=== PATIENT | female | born 1995 | race American Indian/Alaskan Native ===

== ENCOUNTER 2020-04-11 15:27 | Outpatient (CLI) | payer OTHER ==
[2020-04-11 16:00] VITALS: BP 118/76
[2020-04-11] MEDS ORDERED: LACTATED RINGERS 1,000 ML IV SCH (16:00)
[2020-04-11 16:11] LABS: Bilirubin,Urine NEG (Negative); Blood,Urine NEG (Negative); Color,Urine Yellow (Yellow); Mucus,Urine FEW /HPF; Protein,Urine <15 mg/dL mg/dL (Negative); Urobilinogen,Urine < 2.0 mg/dL (<2.0); WBC,Urine < 1.0 /HPF (0.0-6.0)
[2020-04-11] MEDS ORDERED: MAGNESIUM HYDROXIDE (MOM) ORAL LIQD UDC PO PRN (16:40)
[2020-04-11] MEDS ORDERED: PSEUDOEPHEDRINE 30 MG TAB PO PRN (16:40)
[2020-04-11] MEDS ORDERED: ACETAMINOPHEN 325 MG TAB PO PRN (16:40)
[2020-04-11] MEDS ORDERED: DOCUSATE SODIUM 100 MG CAP PO PRN (16:40)
[2020-04-11] MEDS ORDERED: ALUM-MAG HYDROXIDE-SIMETHICONE 200-200-20MG/5ML ORAL LIQD 30 ML PO PRN (16:40)
[2020-04-11] MEDS ORDERED: ONDANSETRON 4 MG/2 ML INJ IV PRN (16:40)
[2020-04-11] MEDS ORDERED: guaiFENesin DM 200/20 MG ORAL LIQD 10 ML PO PRN (16:40)
[2020-04-11] MEDS ORDERED: SIMETHICONE 80 MG CHEW TAB PO PRN (16:40)
[2020-04-11] MEDS ORDERED: WITCH HAZEL/ GLYCERIN PAD TP PRN (16:40)
[2020-04-11] MEDS ORDERED: SODIUM CHLORIDE NASAL SPRAY 44ML NS PRN (16:40)
[2020-04-11] MEDS ORDERED: SENNOSIDES/DOCUSATE SODIUM 8.6/50 MG TAB PO PRN (16:40)
[2020-04-11] MEDS ORDERED: diphenhydrAMINE 25 MG CAP PO PRN (16:40)
--- NOTE | 2020-04-11 17:13 | Discharge Summary ---
Providers - Providers Date of Admission: 04/11/2020 Date of discharge: 04/11/20 Attending physician: CLARA PEÑA JR, MD 04/11/20 16:40 Consult to Physician [CONS] Stat Comment: Consulting Provider: CARROLL PINEDA I Physician Instructions: Reason For Exam: EMILE, antonia PCD Primary care physician: CLARA PEÑA JR, MD Hospitalization Reason for admission: observation Hospital course: 24-year-old -0-1-0 at 23 weeks 2 days by reported sono presenting with pain cervical dilation to 1 cm with membranes visible. Patient desires labor complaints or PIH symptoms. Normal movement. Patient reports a history of pain cervical dilation at 19 weeks with rupture membranes and findings of spontaneous delivery with July 2018. Patient was a transfer from outside facility clinic today with the findings noted above. Patient was not on hormonal management or cerclage for the history of PCD. Discussed with EMILE who reports that they would do steroids until 23w4d. Wouldn't recommend cerclage past 22 weeks. Anatomy scan today showing size = dates. Discharged to follow up with EMILE urgently. Will discharge home with vaginal progestone 200mg QHS. Condition at discharge: Good Disposition: DC-01 TO HOME OR SELFCARE Plan - Discharge Medications Prescriptions: Progesterone, Micronized [Progesterone] 200 mg PO QPM #30 cap - Provider Discharge Summary Additional instructions: [] Smoking cessation referral if applicable(refer to patient education folder for contact #) [] Refer to [facility]'s [facility] Booklet Call your doctor immediately for: * Fever > 100.5 * Heavy vaginal bleeding ( >1 pad per hour) * Severe persistent headache * Shortness of breath * Reddened, hot, painful area to leg or breast * Drainage or odor from incision. * Keep incision clean and dry at all times and follow doctor's instructions regarding bathing/showering - Follow up plan Follow up: CLARA PEÑA JR, MD [Primary Care Provider] - 14 Days
--- NOTE | 2020-04-11 18:00 | Ultrasound Report ---
ULTRASOUND OBSTETRIC COMPLETE INDICATION / CLINICAL INFORMATION: History of dilated cervix on prior ultrasound. Evaluate anatomy/growth. Clinical Gestational Age (GA) in weeks.days: 23.0 TECHNIQUE: Transabdominal. COMPARISON: None available. FINDINGS: NUMBER: Single PRESENTATION: cephalic PLACENTA: posterior and free of the os. MATERNAL ADNEXA: No significant abnormality. AMNIOTIC FLUID VOLUME: normal AMNIOTIC FLUID INDEX (BAUDILIO) in cm (if measured): 16.7 ANATOMY: organs (including the bladder, stomach, kidneys, heart, umbilical cord, diaphragm, cord inserti on, spine and intracranial structures) are visualized and show no significant abnormality with the fo llowing exception(s): None. MEASUREMENTS: - Biparietal Diameter = 5.83 cm = 23.6 weeks.days - Head Circumference = 22.21 cm = 24.2 weeks.days - Abdominal Circumference = 19.20 cm = 23.6 weeks.days - Femur Length = 4.14 cm = 23.3 weeks.days - Estimated Weight (in grams, if calculated): 628 - Heart Rate (beats per minute): 152 ADDITIONAL FINDINGS: The cervix is distended by fluid and measures 3.1 cm in length. PERCENTILE ESTIMATED WEIGHT (if calculated): 80 AVERAGE ULTRASOUND AGE (AUA) in weeks.days = 23.6 IMPRESSION: 1. Single intrauterine with AUA of 23.6 weeks.days 2. Nonspecific cervical distention with a normal cervical length. Signer Name: Jonnathan Escobedo MD Signed: 04/11/2020 5:56 PM Workstation Name: [id number]
[2020-04-12] MEDS ORDERED: PRENATAL VIT27-FE FUMARATE-FOLIC ACID VIT TAB PO SCH (10:00)
== END 2020-04-11 18:18 | disposition home or self-care (01) ==
LOC: TRG 15:27 → APU 15:29 → TRG 18:18
PROVIDERS: ATTEND Obstetrics & Gynecology
DX: O34.32 Maternal care for cervical incompetence, second trimester (principal); Z3A.23 23 weeks gestation of pregnancy
CPT/HCPCS: 59025; 76805; 81001

== ENCOUNTER 2020-04-13 15:13 | Outpatient (CLI) | payer OTHER ==
[2020-04-13 15:54] VITALS: BP 114/71
== END 2020-04-13 16:42 | disposition home or self-care (01) ==
LOC: TRG 15:13 → APU 15:13 → TRG 16:42
PROVIDERS: ATTEND Obstetrics & Gynecology
DX: O26.892 Other specified pregnancy related conditions, second trimester (principal); M54.5 Low back pain; Z3A.23 23 weeks gestation of pregnancy
CPT/HCPCS: 59025

== ENCOUNTER 2020-04-16 17:13 | Outpatient (CLI) | payer OTHER ==
[2020-04-16 19:43] VITALS: BP 124/71
[2020-04-17] MEDS ORDERED: BETAMET ACET/BETAMET NA PH 6 MG/ML INJ 5 ML MDV IM ONE ×2 (01:33→02:00)
--- NOTE | 2020-04-18 09:20 | Ultrasound Report ---
ULTRASOUND OBSTETRIC INDICATION / CLINICAL INFORMATION: ASSESSMENT. Clinical Gestational Age (GA) in weeks, days: 24, 4 TECHNIQUE: Transabdominal. COMPARISON: Ultrasound dated 04/11/20 FINDINGS: There is a single intrauterine . Biparietal Diameter = 5.7 cm = 23, 4 weeks, days Head Circumference = 23 cm = 24, 4 weeks, days Abdominal Circumference = 20 cm = 24, 4 weeks, days Femur Length = 4.5 cm = 24, 6 weeks, days Average Ultrasound Age (AUA) = 24, 3 weeks, days Heart Rate: 157 beats per minute. Estimated Weight in grams (if calculated): 713 Estimated Weight Growth Percentile (if calculated): Not calculated Position: cephalic. Cervix: Mild cervical funneling. Length in cm (if measured): 3.6 Placenta: posterofundal and free of the os. Amniotic Fluid Volume: normal Amniotic Fluid Index (BAUDILIO) in cm (if calculated): Not calculated. Maternal Adnexa: No significant abnormality. IMPRESSION: 1. Single, living intrauterine with estimated sonographic age of 24, 3 weeks, days. 2. Mild cervical funneling with normal cervical length. Signer Name: David Arvizu MD Signed: 04/17/2020 3:10 AM Workstation Name: [id number]
== END 2020-04-17 19:09 | disposition home or self-care (01) ==
LOC: TRG 17:13 → APU 21:51 → TRG 04-17 19:09
PROVIDERS: ATTEND Obstetrics & Gynecology
DX: O47.02 False labor before 37 completed weeks of gestation, second trimester (principal); Z3A.24 24 weeks gestation of pregnancy
CPT/HCPCS: 76805

== ENCOUNTER 2020-04-18 00:57 | Outpatient (CLI) | payer OTHER ==
[~2020-04-18 00:57] MED LIST: BETAMET ACET/BETAMET NA PH 6 MG/ML INJ 5 ML MDV IM ONE
[2020-04-18 01:20] VITALS: BP 118/62
[2020-04-18] MEDS ORDERED: BETAMET ACET/BETAMET NA PH 6 MG/ML INJ 5 ML MDV IM ONE (01:20)
== END 2020-04-18 01:35 | disposition home or self-care (01) ==
LOC: TRG 00:57
PROVIDERS: ATTEND Obstetrics & Gynecology
DX: O47.02 False labor before 37 completed weeks of gestation, second trimester (principal); Z3A.24 24 weeks gestation of pregnancy; Z87.891 Personal history of nicotine dependence
CPT/HCPCS: 96372; J0702

== ENCOUNTER 2020-05-05 04:57 | Inpatient (IN) | payer OTHER ==
[2020-05-05] MEDS ORDERED: LACTATED RINGERS 1,000 ML IV ONE (05:54)
[2020-05-05] MEDS ORDERED: SODIUM CHLORIDE NASAL SPRAY 44ML NS PRN (06:22)
[2020-05-05] MEDS ORDERED: LACTATED RINGERS 500 ML IV ONE (06:22)
[2020-05-05] MEDS ORDERED: diphenhydrAMINE 25 MG CAP PO PRN (06:22)
[2020-05-05] MEDS ORDERED: SIMETHICONE 80 MG CHEW TAB PO PRN (06:22)
[2020-05-05] MEDS ORDERED: ONDANSETRON 4 MG/2 ML INJ IV PRN (06:22)
[2020-05-05] MEDS ORDERED: MAGNESIUM SULFATE 4 GM/100 ML BAG IV ONE (06:33)
[2020-05-05 06:52] LABS: Basophils % (Auto) 0.3 % (0.0-1.8); Eosinophils # (Auto) 0.1 K/mm3 (0.0-0.4); Eosinophils % (Auto) 1.1 % (0.0-4.3); Hemoglobin 9.4 gm/dl (10.1-14.3); Lymphocytes # (Auto) 1.2 K/mm3 (1.2-5.4); Lymphocytes % (Auto) 11.8 % (13.4-35.0); Mean Corpuscular HGB Conc 35 % (30-34); Mean Corpuscular Volume 81 fl (79-97); Monocytes # (Auto) 0.8 K/mm3 (0.0-0.8); Monocytes % (Auto) 8.6 % (0.0-7.3); Platelet Count 229 K/mm3 (140-440); Red Blood Count 3.32 M/mm3 (3.65-5.03); Red Cell Distribution Width 14.4 % (13.2-15.2)
[2020-05-05] MEDS ORDERED: BETAMET ACET/BETAMET NA PH 6 MG/ML INJ 5 ML MDV IM SCH (07:00)
[2020-05-05] MEDS ORDERED: MAGNESIUM SULFATE 40GM/1000ML 40 GM/1,000 ML BAG IV SCH (07:00)
[2020-05-05] MEDS: AMPICILLIN/NS 2 GM/100 ML 2 GM/100 ML BAG IV SCH ×3 (07:34→20:21)
[2020-05-05 08:11] LABS: Bilirubin,Urine NEG (Negative); Blood,Urine NEG (Negative); Color,Urine Straw (Yellow); Mucus,Urine FEW /HPF; Protein,Urine <15 mg/dL mg/dL (Negative); Urobilinogen,Urine < 2.0 mg/dL (<2.0)
[2020-05-05] MEDS: ERYTHROMYCIN LACTOBIONATE 250 MG in SODIUM CHLORIDE 0.9% 100 ML IV SCH ×3 (08:35→20:21)
[2020-05-05] MEDS: PRENATAL VIT27-FE FUMARATE-FOLIC ACID VIT TAB PO SCH (10:00)
--- NOTE | 2020-05-05 10:03 | History and Physical Report ---
History of Present Illness Date of examination: 05/05/20 Date of admission: 05/05/20 06:22 Chief complaint: my water broke History of present illness: Pt is a 24 year old -Guyanese female ILIA 08/06/2020 at 26w5d who presents with leakage of fluid since ~ 0400 05/04/20, which tested nitrizine positive in triage. She denies contractions or vaginal bleeding. She has had care at [facility] since transfer into care from [facility] complicated by morbid obesity, a h/o cervical insufficiency in prior resulting in 19 wk spontaneous . She was found to have a shortened cervix with funneling in March 2020, received betamethasone on 04/17 and 04/18, an [facility] referral, and was started on oral progesterone. She was recently d iagnosed with bacterial vaginosis, but only started taking the prescribed Flagyl yesterday. Her GBS status is unknown. labs: B positive, antibody negative, Rubella Immune, Normal pap smear, RPR nonreactive, Urine culture negative, HepBsAG negative, HIV negative, Gonorrhea/Chlamydia negative, AFP negative, one hour diabetes screen 100 Past History Past Medical History: migraines, hematologic disorders (Sickle Cell Trait, Anemia, Morbid Obesity ) Past Surgical History: no surgical history Family/Genetic History: diabetes, hypertension Social history: no significant social history, - Obstetrical History Expected Date of Delivery: 08/06/20 Actual Gestation: 26 Week(s) 5 Day(s) : 2 Para: 0 Hx # Term Pregnancies: 0 Number of Pregnancies: 0 Spontaneous Abortions: 1 Induced : 0 Number of Living Children: 0 Medications and Allergies Allergies Allergy/AdvReac Type Severity Reaction Status Date / Time No Known Allergies Allergy Verified 04/11/20 15:56 Home Medications Medication Instructions Recorded Confirmed Last Taken Type Progesterone, Micronized 200 mg VG QPM #30 cap 04/11/20 Unknown Rx [Progesterone] Active Meds: Active Medications Acetaminophen (Tylenol) 650 mg PO Q4H PRN PRN Reason: Pain MILD(1-3)/Fever >100.5/FITCH Amoxicillin (Trimox) 250 mg PO Q8HR TRI; Protocol Stop: 05/12/20 13:59 Diphenhydramine HCl (Benadryl) 25 mg PO Q6H PRN PRN Reason: Itching Docusate Sodium (Colace) 100 mg PO Q12H PRN PRN Reason: Constipation Erythromycin (Erythromycin Base) 250 mg PO Q8HR [facility]; Protocol Stop: 05/12/20 13:59 Lactated Ringer's (Lactated Ringers) 1,000 mls @ 125 mls/hr IV DIRECT TRI Ampicillin Sodium (Ampicillin/Ns 2 Gm/100 Ml) 2 gm in 100 mls @ 100 mls/hr IV Q6HR RTI; Protocol Stop: 05/07/20 00:59 Last Admin: 05/05/20 07:34 Dose: 100 mls/hr Documented by: Erythromycin Lactobionate 250 (mg/ Sodium Chloride) 100 mls @ 100 mls/hr IV Q6HR [facility]; Protocol Stop: 05/07/20 00:59 Last Admin: 05/05/20 08:35 Dose: 100 mls/hr Documented by: Magnesium Sulfate (Magnesium Sulfate 40gm/1000ml) 40 gm in 1,000 mls @ 50 mls/hr IV DIRECT TRI Multivitamins/Iron/Calcium ( Vitamin) 1 each PO QDAY TRI Ondansetron HCl (Zofran) 4 mg IV Q6H PRN PRN Reason: Nausea And Vomiting Simethicone (Mylicon) 80 mg PO Q6H PRN PRN Reason: Gas pain Sodium Chloride (Deep Sea) 2 spray NS Q4H PRN PRN Reason: Congestion Review of Systems All systems: negative - Vital Signs Vital signs: Vital Signs Pulse BP Pulse Ox 101 H 135/78 100 05/05/20 05:26 05/05/20 05:26 05/05/20 05:26 Temp Pulse Resp BP Pulse Ox 98.2 F 100 H 16 117/56 75 L 05/05/20 08:40 05/05/20 09:51 05/05/20 08:40 05/05/20 09:51 05/05/20 06:58 - Physical Exam Breasts: Positive: deferred Abdomen: Positive: soft (obese, gravid ). Negative: tenderness Uterus: Positive: enlarged (gravid ) Extremities: Positive: normal - Obstetrical FHR: auscultation normal Uterine Contraction Monitor Mode: External Uterine Contraction Pattern: Absent Uterine Tone Measurement Phase: Resting Results Result Diagrams: 05/05/20 06:27 Abnormal lab results 05/05/20 05/05/20 Range/Units 06:27 07:30 RBC 3.32 L (3.65-5.03) M/mm3 Hgb 9.4 L (10.1-14.3) gm/dl Hct 27.0 L (30.3-42.9) % MCHC 35 H (30-34) % Lymph % (Auto) 11.8 L (13.4-35.0) % [place] % (Auto) 8.6 H (0.0-7.3) % Seg Neutrophils % 78.2 H (40.0-70.0) % Urine WBC (Auto) 12.0 H (0.0-6.0) /HPF All other labs normal. Assessment and Plan A: IUP at 26w5d s/p betamethazone on 04/17 and 04/18 PPROM ~ 4am 05/05/20 Shortened Cervix, Funneling noted by APA; 1 cm dilated per RN Morbid Obesity Migraines Anemia Sickle Cell Trait GBS unknown P: Admit to antepartum service Magnesium sulfate for neuroprotection Latency antibiotics Booster dose of betamethasone NICU consult Ultrasound for presentation, EFW, placental location and BAUDILIO Closely monitor maternal and status
--- NOTE | 2020-05-05 12:27 | Ultrasound Report ---
US OB limited INDICATION: IUP AT 26 WKS, PPROM. TECHNIQUE: Transabdominal. Color Doppler was used. COMPARISON: None available. FINDINGS: There is a single intrauterine . Biparietal Diameter = 6 cm Head Circumference = 25 cm Abdominal Circumference = 24.8 cm Femur Length = 4.5 cm Average Ultrasound Age (AUA) = 26 weeks, 3 day(s). Heart Rate: 143 beats per minute. Estimated Weight in grams (if calculated): 1040 g Estimated Weight Growth Percentile (if calculated): 71 percentile Cervix: Not well-visualized. Placenta: posterofundal and free of the os. Amniotic Fluid Volume: decreased Amniotic Fluid Index (BAUDILIO) in cm (if calculated): 7.2 cm. Maternal Adnexa: No significant abnormality. IMPRESSION: 1. Oligohydramnios. Single, living intrauterine with estimated sonographic age of 26 weeks, 3 day(s). Signer Name: Rufino Negrete MD Signed: 05/05/2020 12:22 PM Workstation Name: [id number]
[2020-05-05] MEDS: metroNIDAZOLE 500 MG TAB PO SCH ×2 (14:00→21:00)
[2020-05-05] MEDS: LACTATED RINGERS 1,000 ML IV SCH (14:45)
[2020-05-05] MEDS: ACETAMINOPHEN 325 MG TAB PO PRN ×2 (16:20→20:22)
[2020-05-05] MEDS: diphenhydrAMINE 25 MG CAP PO PRN (22:39)
[2020-05-05] MEDS: METOCLOPRAMIDE 10 MG TAB PO PRN (22:39)
[2020-05-06] MEDS: AMPICILLIN/NS 2 GM/100 ML 2 GM/100 ML BAG IV SCH ×3 (02:32→18:10)
[2020-05-06] MEDS: ERYTHROMYCIN LACTOBIONATE 250 MG in SODIUM CHLORIDE 0.9% 100 ML IV SCH ×3 (02:32→20:25)
[2020-05-06] MEDS: LACTATED RINGERS 1,000 ML IV SCH ×2 (03:40→10:42)
[2020-05-06] MEDS: diphenhydrAMINE 25 MG CAP PO PRN (10:32)
[2020-05-06] MEDS: PRENATAL VIT27-FE FUMARATE-FOLIC ACID VIT TAB PO SCH (10:32)
[2020-05-06] MEDS: METOCLOPRAMIDE 10 MG TAB PO PRN (10:33)
[2020-05-06] MEDS: ACETAMINOPHEN 325 MG TAB PO PRN (10:33)
[2020-05-06] MEDS: metroNIDAZOLE 500 MG TAB PO SCH ×2 (10:33→21:54)
--- NOTE | 2020-05-06 18:05 | Progress Note ---
Assessment and Plan A: at 26 6/7 weeks gestation with PPROM. S/P steroids for FLM. S/P magnesium sulfate for neuroprotection. On latency antibiotics. Awaiting perinatology consult. P: Continue latency antibiotics. Monitor for signs of infection; no signs of infection noted at this time. Monitor for signs of labor. Perinatology plans to see patient tomorrow. GBS culture taken and sent to lab. Repeat CBC, CMP tomorrow. Subjective - Subjective Date of service: 05/06/20 Principal diagnosis: at 26 weeks, 6 days gestation; PPROM Interval history: 24 year old at 26 weeks, 6 days gestation was admitted yesterday by Dr. Agustin due to PPROM. She is S/P Celestone for FLM and has received a booster dose of Celestone. She is S/P magnesium sulfate for neuroprotection. She is receiving latency antibiotics. She has perinatology consult pending; perinatologist notified and states he will see her tomorrow. History of shortened cervix with funneling. GBS culture has been done today and sent to lab. Ultrasound shows oligohydramnios and size consistent with dates. Patient is afebrile. She denies uterine tenderness, fever or chills, or foul smelling vaginal discharge. Patient reports: loss of fluid, movement normal, no vaginal bleeding, no contractions Objective - Vital Signs Vital Signs: Vital Signs - 12hr 05/06/20 05/06/20 05/06/20 06:52 06:54 07:52 Temperature Pulse Rate 93 H 93 H 101 H Blood Pressure 89/62 96/55 104/54 05/06/20 05/06/20 05/06/20 08:00 08:52 09:52 Temperature 98.3 F Pulse Rate 100 H 96 H Blood Pressure 107/55 113/64 05/06/20 05/06/20 05/06/20 10:52 11:52 12:53 Temperature Pulse Rate 97 H 98 H 103 H Blood Pressure 118/68 133/76 142/55 05/06/20 05/06/20 05/06/20 13:09 13:52 14:52 Temperature Pulse Rate 98 H 100 H 104 H Blood Pressure 120/58 116/56 115/58 05/06/20 05/06/20 05/06/20 15:52 16:52 17:52 Temperature Pulse Rate 97 H 108 H 102 H Blood Pressure 118/65 116/59 106/60 - Exam Cardiovascular: Regular rate, No murmurs Lungs: Clear to auscultation Abdomen: Present: normal appearance, soft. Absent: distention, tenderness, guarding, rigidity Uterus: Present: fundal height above umbilicus. Absent: tenderness FHR: category 1 Uterine Contraction Monitor Mode: External Uterine Contraction Pattern: Absent Extremities: normal - Labs Labs: Abnormal Labs 05/05/20 05/05/20 05/06/20 06:27 07:30 00:19 RBC 3.32 L Hgb 9.4 L Hct 27.0 L MCHC 35 H Lymph % (Auto) 11.8 L [place] % (Auto) 8.6 H Seg Neutrophils % 78.2 H Magnesium 5.20 H Urine WBC (Auto) 12.0 H 05/06/20 05/06/20 09:14 14:41 RBC Hgb Hct MCHC Lymph % (Auto) [place] % (Auto) Seg Neutrophils % Magnesium 5.20 H 4.00 H Urine WBC (Auto) Laboratory Results - last 24 hr 05/06/20 05/06/20 05/06/20 00:19 09:14 14:41 Magnesium 5.20 H 5.20 H 4.00 H
[2020-05-07] MEDS: AMPICILLIN/NS 2 GM/100 ML 2 GM/100 ML BAG IV SCH ×2 (00:16→06:10)
[2020-05-07] MEDS: ERYTHROMYCIN LACTOBIONATE 250 MG in SODIUM CHLORIDE 0.9% 100 ML IV SCH ×2 (02:53→08:10)
[2020-05-07] MEDS ORDERED: AMPICILLIN/NS 2 GM/100 ML 2 GM/100 ML BAG IV SCH (06:45)
[2020-05-07 08:12] LABS: Basophils % (Auto) 0.1 % (0.0-1.8); Eosinophils % (Auto) 0.5 % (0.0-4.3); Hematocrit 24.7 % (30.3-42.9); Hemoglobin 8.2 gm/dl (10.1-14.3); Lymphocytes # (Auto) 1.3 K/mm3 (1.2-5.4); Lymphocytes % (Auto) 13.2 % (13.4-35.0); Mean Corpuscular HGB Conc 33 % (30-34); Mean Corpuscular Volume 83 fl (79-97); Monocytes # (Auto) 0.8 K/mm3 (0.0-0.8); Platelet Count 237 K/mm3 (140-440); Red Blood Count 2.99 M/mm3 (3.65-5.03); Red Cell Distribution Width 14.7 % (13.2-15.2)
[2020-05-07 08:32] LABS: Alanine Aminotransferase 10 units/L (7-56); Albumin 2.9 g/dL (3.9-5); Blood Urea Nitrogen 4 mg/dL (7-17); Hemolysis Index 0
[2020-05-07 08:35] LABS: BUN/Creatinine Ratio 10
[2020-05-07] MEDS: FERROUS SULFATE 325 MG TAB PO SCH (10:01)
[2020-05-07] MEDS: metroNIDAZOLE 500 MG TAB PO SCH ×2 (10:01→22:47)
[2020-05-07] MEDS: PRENATAL VIT27-FE FUMARATE-FOLIC ACID VIT TAB PO SCH (10:01)
[2020-05-07] MEDS: LACTATED RINGERS 1,000 ML IV SCH (12:01)
[2020-05-07] MEDS ORDERED: AMOXICILLIN 250 MG CAP PO SCH (14:00)
[2020-05-07] MEDS ORDERED: ERYTHROMYCIN BASE 250 MG CAPSULE DR PO SCH (14:00)
[2020-05-07] MEDS ORDERED: propofoL 200 MG/20 ML VIAL IV ONE (15:30)
[2020-05-07] MEDS ORDERED: SUCCINYLCHOLINE CHLORIDE 200 MG/10 ML INJ MDV ONE (15:30)
[2020-05-07] MEDS ORDERED: LIDOCAINE PF 100 MG/5 ML (CARDIAC SYRINGE) IV ONE (15:30)
[2020-05-07] MEDS ORDERED: dexAMETHasone 20 MG/5 ML VIAL ONE (15:43)
[2020-05-07] MEDS ORDERED: ONDANSETRON 4 MG/2 ML INJ ONE (15:43)
[2020-05-07] MEDS ORDERED: HYDROmorphone 1 MG/1 ML INJ ONE (15:44)
[2020-05-07] MEDS ORDERED: PORACTANT ALFA 80 MG/ML (1.5 ML) VIAL ONE (16:05)
[2020-05-07] MEDS ORDERED: PHENYLEPHRINE/NS 1,000 MCG/10 ML SYRINGE (OR USE) IV ONE (16:27)
[2020-05-07] MEDS ORDERED: KETOROLAC 30 MG/1 ML INJ ONE (16:28)
[2020-05-07] MEDS ORDERED: HYDROCORTISONE 25 MG RECTAL SUPP PR PRN (16:54)
[2020-05-07] MEDS ORDERED: PROMETHAZINE 25 MG RECT SUPP PR PRN (16:54)
[2020-05-07] MEDS ORDERED: MAGNESIUM HYDROXIDE (MOM) ORAL LIQD UDC PO PRN (16:54)
[2020-05-07] MEDS ORDERED: ACETAMINOPHEN 325 MG TAB PO PRN (16:54)
[2020-05-07] MEDS ORDERED: NALOXONE 0.4 MG/1 ML INJ IV PRN (16:54)
[2020-05-07] MEDS ORDERED: SENNOSIDES 8.6 MG TAB PO PRN (16:54)
[2020-05-07] MEDS ORDERED: SIMETHICONE 80 MG CHEW TAB PO PRN (16:54)
[2020-05-07] MEDS ORDERED: WITCH HAZEL/ GLYCERIN PAD TP PRN (16:54)
[2020-05-07] MEDS ORDERED: LANOLIN/ZINC/DIMETHICONE (LANSINOH) 7 GM TP PRN (16:54)
[2020-05-07] MEDS ORDERED: OXYTOCIN DRIP 30 UNITS/500 ML BAG IV SCH (17:00)
--- NOTE | 2020-05-07 17:07 | Procedure Note ---
OB Delivery Note - Delivery Date of Delivery: 05/07/20 Surgeon: CLARA PEÑA JR Estimated blood loss: other (600cc) - Section Preop diagnosis: breech (at 27-27 weeks) Postop diagnosis: same section procedure: section, vertical ((Classical)) Disposition: PACU Complications: none Narrative: Indication: 24 yo at 27w0d who presented with PPROM since 05/04/2020 c/b breech presentation, sickle cell trait, anemia, morbid obesity for STAT primary c/s for breech presentation with leg presenting from cervix. Delivery of female at 1542 1000 g 7/9 EBL 600 cc IVF 1200 cc UOP 650 cc Procedure: Patient was taken to the operating room prepped and draped in the usual sterile fashion. Pfannenstiel skin incision was made and carried down to the underlying fascia. Fascia was incised and the incision was distended bilaterally. Rectus fascia was dissected off the rectus muscle superiorly and inferiorly. Peritoneum was identified and entered. Peritoneal incision extended superiorly and inferiorly. The bladder was visualized. The bladder blade was placed. Uterine hysterotomy incision vertically was made and extended bilaterally. The baby was delivered in the typical vertex fashion. Baby was bulb suction at delivery. The cord was cut and clamped and handed off to the team. The placenta was delivered spontaneously. The uterus was exteriorized and cleared of all clots and debris. Uterine incision was closed with a 0 Vicryl in a running locked fashion vertically for 2 layers, then 1 layer using a baseball stitch. Good hemostasis was noted. Surgicel was applied to the uterine repair base. The urine was noted to be clear. Uterus, tubes, and ovaries were returned to the abdominal cavity. Bilateral gutters were cleared and the abdomen and pelvis were irrigated. Good hemostasis noted. Attention was directed towards the rectus fascia which was reapproximated with 0 PDS in a running fashion. The subcutaneous tissue was irrigated and reapproximated with 2-0 Vicryl in a running fashion. Skin was closed with a 4-0 Vicryl in a subcuticular fashion. The procedure was completed and the patient tolerated the procedure well. All instruments and lap counts were correct x2. - A at 1 minute: 7 at 5 minutes: 9 Infant Gender: Female
[2020-05-07] MEDS ORDERED: PROMETHAZINE 25 MG TAB PO PRN (17:18)
[2020-05-07] MEDS ORDERED: HYDROmorphone 1 MG/1 ML INJ IV PRN (17:18)
[2020-05-07] MEDS ORDERED: NalbUPHINE 10 MG/1 ML INJ IV PRN (17:18)
--- NOTE | 2020-05-07 17:20 | Anesthesia Consultation ---
Anesthesia Consult and Med Hx Date of service: 05/07/20 - Airway Anesthetic Teeth Evaluation: Good ROM Head & Neck: Adequate Mental/Hyoid Distance: Adequate Mallampati Class: Class II Intubation Access Assessment: Probably Good - Pulmonary Exam CTA: Yes - Cardiac Exam Cardiac Exam: RRR - Pre-Operative Health Status ASA Pre-Surgery Classification: ASA2, Emergency Proposed Anesthetic Plan: General Nerve Block: TAP - Pulmonary Hx Smoking: No Hx Asthma: No COPD: No Hx Pneumonia: No Hx Sleep Apnea: No - Cardiovascular System Hx Hypertension: No Hx Heart Attack/AMI: No - Central Nervous System Hx Seizures: No Hx Psychiatric Problems: Yes (manic depression, bipolar, not on meds) - Gastrointestinal Hx Gastroesophageal Reflux Disease: No - Endocrine Hx Renal Disease: No Hx End Stage Renal Disease: No Hx Hypothyroidism: No Hx Hyperthyroidism: No - Hematic Hx Anemia: No Hx Sickle Cell Disease: Yes (TRAIT) - Other Systems Hx Alcohol Use: No - Additional Comments Anesthesia Medical History Comments: Ate lunch noon.
--- NOTE | 2020-05-07 17:21 | Anesthesia Day of Surgery ---
Anesthesia Day of Surgery - Day of Surgery Patient Examined: Yes Patient H&P Reviewed: No Patient is NPO: No Beta Blockers: No Cardiac Clearance: No Pulmonary Clearance: No Nando's Test: N/A
--- NOTE | 2020-05-07 17:23 | Progress Note ---
Regional Anesthesia Block - Regional Anesthesia Block Start Time: 16:35 Stop Time: 16:45 Performed By:: FABRIZIO YAÑEZ ([place] [facility]) Procedure: Patient consented for TAP block for post surgical pain management. Patient identified, monitors placed, and time out performed. Mid axillary TAP identified bilaterally via ultrasound. Skin prepped bilaterally with [chlorhexidine] and [20g stimuplex] needle advanced to the TAP. 30ml [Marcaine 0.25% with 25mcg Precedex] injected under ultrasound guidance on the [left] side. 30ml [Marcaine 0.25% with 25mcg Precedex] injected under ultrasound guidance on the [right] side.
[2020-05-07] MEDS: HYDROmorphone 1 MG/1 ML INJ IV PRN ×2 (17:35→17:41)
[2020-05-07] MEDS ORDERED: fentaNYL 100 MCG/2 ML INJ IV ONE (18:47)
[2020-05-07] MEDS: MORPHINE 4 MG/1 ML INJ IV PRN (20:32)
[2020-05-07] MEDS: DOCUSATE SODIUM 100 MG CAP PO PRN (22:46)
[2020-05-08] MEDS: LACTATED RINGERS 1,000 ML IV SCH (03:21)
[2020-05-08] MEDS: MORPHINE 4 MG/1 ML INJ IV PRN (04:03)
[2020-05-08] MEDS: PRENATAL VIT27-FE FUMARATE-FOLIC ACID VIT TAB PO SCH (09:02)
[2020-05-08] MEDS: FERROUS SULFATE 325 MG TAB PO SCH (09:02)
[2020-05-08] MEDS: IBUPROFEN 800 MG TAB PO PRN ×3 (09:02→22:35)
[2020-05-08] MEDS: metroNIDAZOLE 500 MG TAB PO SCH ×2 (09:02→22:35)
[2020-05-08] MEDS: DOCUSATE SODIUM 100 MG CAP PO PRN (09:02)
[2020-05-08 09:13] LABS: Hematocrit 23.2 % (30.3-42.9); Hemoglobin 7.6 gm/dl (10.1-14.3)
--- NOTE | 2020-05-08 09:56 | Post Anesthesia Evaluation ---
- Post Anesthesia Evaluation Patient Participated: Yes Airway Patent: Yes Stable Respiratory Function: Yes Nausea/Vomiting: No Temp > 96.8F: Yes Pain Manageable: Yes Adequeate Hydration: Yes Anesthesia Complications: No Block Receding Appropriately: Yes Patient on Ventilator: No
--- NOTE | 2020-05-08 12:33 | Progress Note ---
Assessment and Plan - Patient Problems (1) Status post primary low transverse section Current Visit: Yes Status: Acute Plan to address problem: Continue routine PP orders Keep dressing clean and dry, remove on POD#2 Anticipate d/c home in 24-48 hr if stable (2) Anemia Current Visit: Yes Status: Acute Qualifiers: Anemia type: iron deficiency Plan to address problem: Asymptomatic Infed 100mg IM x 1 dose Increase iron rich foods into diet Subjective - Subjective Date of service: 05/08/20 Principal diagnosis: PPROM; S/P primary C/S; POD#1 Interval history: See admission H & P; OB operative summary and PP progress notes Patient reports: appetite normal, voiding normally, pain well controlled (with medication), flatus, ambulating normally, no bowel movement [place]: in NICU Objective - Vital Signs Latest vital signs: Vital Signs Temp Pulse Resp BP BP Pulse Ox 05/08/20 09:12 98.5 F 84 18 120/72 05/08/20 04:54 98.1 F 88 18 110/68 99 05/08/20 00:45 98.6 F 81 18 119/63 100 05/07/20 19:35 98.1 F 75 20 116/66 05/07/20 18:15 86 13 106/60 94 05/07/20 17:55 92 H 19 121/77 99 05/07/20 17:30 87 23 119/73 98 05/07/20 17:15 90 18 122/77 95 05/07/20 17:10 96 H 20 124/80 96 05/07/20 17:05 95 H 17 120/78 98 05/07/20 16:59 97.6 F 101 H 114/79 94 05/07/20 14:52 92 H 115/89 05/07/20 13:53 92 H 112/61 05/07/20 12:52 93 H 110/63 Intake and Output 05/07/20 05/08/20 05/08/20 23:59 07:59 15:59 Intake Total 1000 420 Output Total 10 2700 Balance 990 -2280 Intake: IV 1000 Lactated Ringers 1,000 ml 1000 @ 125 mls/hr IV DIRECT TRI Rx#:[id number] Intake, Free Water 420 Output: Urine 10 2700 Indwelling Catheter 2100 Uretheral ([place]) 10 Void 600 Other: Total, Output Amount 600 # Voids Indwelling Catheter 350 - Exam Breasts: Present: normal (is pumping currently) Cardiovascular: Present: Regular rate Lungs: Present: Normal air movement Abdomen: Present: soft, tenderness Uterus: Present: firm, fundal height below umbilicus (U-1) Extremities: Present: edema Incision: Present: dressed (no shadow drainage or bleeding noted) - Labs Labs: Abnormal lab results 05/08/20 Range/Units 07:01 Hgb 7.6 L (10.1-14.3) gm/dl Hct 23.2 L (30.3-42.9) %
[2020-05-08] MEDS ORDERED: IRON DEXTRAN COMPLEX 100 MG/2 ML INJ IM SCH (12:34)
[2020-05-08] MEDS: oxyCODONE /ACETAMINOPHEN 5-325MG TAB PO PRN ×2 (13:50→20:31)
[2020-05-09] MEDS: oxyCODONE /ACETAMINOPHEN 5-325MG TAB PO PRN ×4 (03:35→20:15)
[2020-05-09] MEDS: IBUPROFEN 800 MG TAB PO PRN ×4 (05:55→23:48)
[2020-05-09] MEDS: metroNIDAZOLE 500 MG TAB PO SCH ×2 (09:40→23:21)
[2020-05-09] MEDS: PRENATAL VIT27-FE FUMARATE-FOLIC ACID VIT TAB PO SCH (09:40)
[2020-05-09] MEDS: FERROUS SULFATE 325 MG TAB PO SCH (09:40)
--- NOTE | 2020-05-09 13:51 | Progress Note ---
Assessment and Plan A: POD #1 Asymptomatic Anemia P: Follow Routine PostOp Orders FeSO4 PO BID D/C Home today per Patient Request RTO in 10 Days Subjective - Subjective Date of service: 05/09/20 Principal diagnosis: PPROM; S/P primary C/S; POD#1 Patient reports: appetite normal, voiding normally, pain well controlled, flatus, ambulating normally [place]: doing well, in NICU, bottle feeding (and ) Objective - Vital Signs Latest vital signs: Vital Signs Temp Pulse Resp BP BP Pulse Ox 05/09/20 07:29 98.6 F 84 20 107/61 100 05/09/20 00:00 98.6 F 69 18 104/77 05/08/20 19:56 98.0 F 81 18 89/46 100 Intake and Output 05/08/20 05/09/20 05/09/20 22:59 06:59 14:59 Intake Total 300 240 Balance 300 240 Intake: Oral 240 Intake, Free Water 300 Other: Total, Intake Amount 240 # Voids Void 1 1 - Exam Breasts: Present: normal Cardiovascular: Present: Regular rate Lungs: Present: Clear to auscultation, Normal air movement Abdomen: Present: normal appearance, soft, normal bowel sounds Uterus: Present: normal, firm, fundal height below umbilicus Extremities: Present: normal Incision: Present: normal, dry, intact
--- NOTE | 2020-05-09 13:53 | Discharge Summary ---
Providers - Providers Date of Admission: 05/05/20 06:22 Date of discharge: 05/09/20 Attending physician: SELIN GARCIAS MD 05/05/20 10:00 Consult to Physician [CONS] Routine Comment: Consulting Provider: RADHA MARTIN Physician Instructions: Reason For Exam: IUP AT 26 WKS, PPROM Primary care physician: SELIN GARCIAS MD Hospitalization Reason for admission: observation Delivery: Procedure: primary low transverse Episiotomy: none Laceration: none Incision: normal, dry, intact Other procedures: none complications: none Discharge diagnosis: delivery Condition at discharge: Good Disposition: DC- TO HOME OR SELFCARE Plan - Discharge Medications Prescriptions: Ibuprofen [Motrin 800 MG tab] 800 mg PO Q6H PRN #30 tablet PRN Reason: Pain, Mild (1-3) oxyCODONE /ACETAMINOPHEN [Percocet 5/325 mg] 1 tab PO Q6H PRN #30 tablet PRN Reason: Pain, Moderate (4-6) - Provider Discharge Summary Activity: routine, no sex for 6 weeks, no heavy lifting 4 weeks, no strenuous exercise Diet: routine Instructions: routine Additional instructions: [] Smoking cessation referral if applicable(refer to patient education folder for contact #) [] Refer to [facility] Booklet Call your doctor immediately for: * Fever > 100.5 * Heavy vaginal bleeding ( >1 pad per hour) * Severe persistent headache * Shortness of breath * Reddened, hot, painful area to leg or breast * Drainage or odor from incision. * Keep incision clean and dry at all times and follow doctor's instructions regarding bathing/showering - Follow up plan Follow up: CLARA PEÑA JR, MD [Staff Physician] - 05/21/20
[2020-05-10] MEDS: oxyCODONE /ACETAMINOPHEN 5-325MG TAB PO PRN (05:19)
[2020-05-10] MEDS: IBUPROFEN 800 MG TAB PO PRN (09:08)
[2020-05-10] MEDS: FERROUS SULFATE 325 MG TAB PO SCH (09:09)
[2020-05-10] MEDS: metroNIDAZOLE 500 MG TAB PO SCH (09:09)
[2020-05-10] MEDS: PRENATAL VIT27-FE FUMARATE-FOLIC ACID VIT TAB PO SCH (09:09)
[2020-05-10 10:56] VITALS: BP 115/69
== END 2020-05-10 10:30 | disposition home or self-care (01) | DRG 765 ==
LOC: TRG 04:57 → LD 04:57 → APU 04:59 → TRG 06:22 → LD 06:22 → OB 05-07 19:50
PROVIDERS: ADMIT Obstetrics & Gynecology; ATTEND Obstetrics & Gynecology
PROC: 10D00Z1 Extraction of Products of Conception, Low, Open Approach (ICD-10-PCS; principal; 2020-05-07)
DX: O42.012 Preterm premature rupture of membranes, onset of labor within 24 hours of rupture, second trimester (principal); O60.12X0 Preterm labor second trimester with preterm delivery second trimester, not applicable or unspecified; O99.354 Diseases of the nervous system complicating childbirth; O26.872 Cervical shortening, second trimester; Z20.828 Contact with and (suspected) exposure to other viral communicable diseases; O99.214 Obesity complicating childbirth; O32.1XX0 Maternal care for breech presentation, not applicable or unspecified; E66.01 Morbid (severe) obesity due to excess calories; G43.909 Migraine, unspecified, not intractable, without status migrainosus; Z3A.26 26 weeks gestation of pregnancy; Z83.3 Family history of diabetes mellitus; Z82.49 Family history of ischemic heart disease and other diseases of the circulatory system; Z37.0 Single live birth; O90.81 Anemia of the puerperium; D57.3 Sickle-cell trait
CPT/HCPCS: 36415; 76815; 80053; 81001; 83735; 85014; 85018; 85025; 86592; 86850; 86900; 86901; 87086; 87116; 88305; G0378; J0290; J0330; J0702; J1100; J1170; J1364; J1750; J1885; J2001; J2270; J2370; J2405; J2704; J3010; J3475; J7120; U0003

== ENCOUNTER 2021-04-09 19:20 | Emergency (ER) | payer SELFPAY ==
[2021-04-09] MEDS ORDERED: TETANUS,DIPH,PERTUSS(ACELL) VACCINE 0.5 ML SYRINGE IM ONE (20:15)
--- NOTE | 2021-04-09 20:24 | Emergency Department Report ---
HPI - General Time Seen by Provider: 04/09/21 20:06 - HPI HPI: 25-year-old -[place]er female presents to the emergency department via PD for a mental health evaluation and evaluation of head trauma. The patient called 911 saying that her [id number] daughter was missing, when in fact her daughter was in the other room with her father. When police arrived the father showed them evidence that she had been having a psychotic breakdown and has been destroying furniture and other items in the house. When the patient was in custody with the police she began banging her head against the window and divider between the front and back seat, around 15 times per PD. PD also says that the patient was making homicidal threats towards nonspecific people at the intermediate in anticipation of going to intermediate. Patient has a history of bipolar disorder and schizophrenia. ED Past Medical Hx - Past Medical History Hx Hypertension: No Hx Heart Attack/AMI: No Hx Congestive Heart Failure: No Hx Diabetes: No Hx Deep Vein Thrombosis: No Hx Renal Disease: No Hx Sickle Cell Disease: Yes (TRAIT) Hx Seizures: No Hx Asthma: No Hx COPD: No Hx HIV: No - Social History Smoking Status: Former Smoker - Medications Home Medications: Home Medications Medication Instructions Recorded Confirmed Last Taken Type Progesterone, Micronized 200 mg VG QPM #30 cap 04/11/20 05/05/20 Unknown Rx [Progesterone] Ibuprofen [Motrin 800 MG tab] 800 mg PO Q6H PRN #30 tablet 05/07/20 Unknown Rx oxyCODONE /ACETAMINOPHEN [Percocet 1 tab PO Q6H PRN #30 tablet 05/07/20 Unknown Rx 5/325 mg] Nitrofurantoin Whitley/M-Cryst 100 mg PO BID #12 capsule 04/10/21 Unknown Rx [Macrobid CAP] ED Review of Systems ROS: Stated complaint: PSYCHIATRIC EMERGENCY/MH Other details as noted in HPI Comment: All other systems reviewed and negative Constitutional: denies: chills, fever Eyes: denies: eye pain, vision change ENT: denies: ear pain, throat pain Respiratory: denies: cough, shortness of breath Cardiovascular: denies: chest pain, palpitations Gastrointestinal: denies: abdominal pain, vomiting Genitourinary: denies: dysuria, discharge Musculoskeletal: denies: back pain, arthralgia Skin: other (forehead laceration). denies: rash, lesions Neurological: headache. denies: numbness, paresthesias Psychiatric: homicidal thoughts Physical Exam - Physical Exam Physical Exam: GENERAL: The patient is well-developed well-nourished. HENT: Normocephalic. Patient has moist mucous membranes. EYES: Extraocular motions are intact. No nystagmus. NECK: Supple. Trachea is midline. CHEST/LUNGS: Clear to auscultation. There is no respiratory distress noted. HEART/CARDIOVASCULAR: Regular. There is no tachycardia. There is no murmur. ABDOMEN: Abdomen is soft, nontender. Patient has normal bowel sounds. SKIN: Skin is warm and dry. There is a 2 cm superficial, linear, laceration to the middle of her forehead. NEURO: The patient is awake, alert, and oriented. The patient is cooperative. The patient has no focal neurologic deficits. Normal speech. Cranial nerves II through XII grossly intact. No facial asymmetry. MUSCULOSKELETAL: There is no tenderness or deformity. There is no limitation range of motion. - Procedure Description Procedures done: Forehead laceration was repaired with 1/8 inch Steri-Strips followed by Dermabond. There is good approximation of the laceration. No current bleeding. No complications from this procedure. ED Medical Decision Making - Lab Data Result diagrams: 04/09/21 20:44 04/09/21 20:44 Lab Results 04/09/21 04/09/21 04/09/21 Range/Units 20:14 20:14 20:44 WBC 10.8 (4.5-11.0) K/mm3 RBC 4.25 (3.65-5.03) M/mm3 Hgb 10.5 (10.1-14.3) gm/dl Hct 32.0 (30.3-42.9) % MCV 75 L (79-97) fl MCH 25 L (28-32) pg MCHC 33 (30-34) % RDW 16.9 H (13.2-15.2) % Plt Count 284 (140-440) K/mm3 Lymph % (Auto) 9.7 L (13.4-35.0) % Whitley % (Auto) 9.6 H (0.0-7.3) % Eos % (Auto) 0.1 (0.0-4.3) % Baso % (Auto) 0.4 (0.0-1.8) % Lymph # (Auto) 1.0 L (1.2-5.4) K/mm3 Whitley # (Auto) 1.0 H (0.0-0.8) K/mm3 Eos # (Auto) 0.0 (0.0-0.4) K/mm3 Baso # (Auto) 0.0 (0.0-0.1) K/mm3 Seg Neutrophils % 80.2 H (40.0-70.0) % Seg Neutrophils # 8.6 H (1.8-7.7) K/mm3 Sodium (137-145) mmol/L Potassium (3.6-5.0) mmol/L Chloride (98-107) mmol/L Carbon Dioxide (22-30) mmol/L Anion Gap mmol/L BUN (7-17) mg/dL Creatinine (0.6-1.2) mg/dL Estimated GFR ml/min BUN/Creatinine Ratio % Glucose (65-100) mg/dL Calcium (8.4-10.2) mg/dL HCG, Qual (Negative) Urine Color Yellow (Yellow) Urine Turbidity Slightly-cloudy (Clear) Urine pH 5.0 (5.0-7.0) Ur Specific [place] 1.015 (1.003-1.030) Urine Protein 30 mg/dl (Negative) mg/dL Urine Glucose (UA) Neg (Negative) mg/dL Urine Ketones Tr (Negative) mg/dL Urine Blood Neg (Negative) Urine Nitrite Pos (Negative) Urine Bilirubin Neg (Negative) Urine Urobilinogen < 2.0 (<2.0) mg/dL Ur Leukocyte Esterase Mod (Negative) Urine WBC (Auto) 45.0 H (0.0-6.0) /HPF Urine RBC (Auto) 6.0 (0.0-6.0) /HPF U Epithel Cells (Auto) 2.0 (0-13.0) /HPF Urine Bacteria (Auto) 4+ (Negative) /HPF Hyaline Casts 8 /LPF Urine Mucus 2+ /HPF Urine Yeast (Budding) 1+ /HPF Urine Opiates Screen Negative Urine Methadone Screen Negative Ur Barbiturates Screen Negative Ur Phencyclidine Scrn Negative Ur Amphetamines Screen Negative U Benzodiazepines Scrn Negative Urine Cocaine Screen Negative U Marijuana (THC) Screen Negative Drugs of Abuse Note Disclamer Plasma/Serum Alcohol (0-0.07) % 04/09/21 04/09/21 04/09/21 Range/Units 20:44 20:44 20:44 WBC (4.5-11.0) K/mm3 RBC (3.65-5.03) M/mm3 Hgb (10.1-14.3) gm/dl Hct (30.3-42.9) % MCV (79-97) fl MCH (28-32) pg MCHC (30-34) % RDW (13.2-15.2) % Plt Count (140-440) K/mm3 Lymph % (Auto) (13.4-35.0) % Whitley % (Auto) (0.0-7.3) % Eos % (Auto) (0.0-4.3) % Baso % (Auto) (0.0-1.8) % Lymph # (Auto) (1.2-5.4) K/mm3 Whitley # (Auto) (0.0-0.8) K/mm3 Eos # (Auto) (0.0-0.4) K/mm3 Baso # (Auto) (0.0-0.1) K/mm3 Seg Neutrophils % (40.0-70.0) % Seg Neutrophils # (1.8-7.7) K/mm3 Sodium 138 (137-145) mmol/L Potassium 5.0 (3.6-5.0) mmol/L Chloride 104.4 (98-107) mmol/L Carbon Dioxide 20 L (22-30) mmol/L Anion Gap 19 mmol/L BUN 8 (7-17) mg/dL Creatinine 0.9 (0.6-1.2) mg/dL Estimated GFR > 60 ml/min BUN/Creatinine Ratio 9 % Glucose 90 (65-100) mg/dL Calcium 10.1 (8.4-10.2) mg/dL HCG, Qual Negative (Negative) Urine Color (Yellow) Urine Turbidity (Clear) Urine pH (5.0-7.0) Ur Specific [place] (1.003-1.030) Urine Protein (Negative) mg/dL Urine Glucose (UA) (Negative) mg/dL Urine Ketones (Negative) mg/dL Urine Blood (Negative) Urine Nitrite (Negative) Urine Bilirubin (Negative) Urine Urobilinogen (<2.0) mg/dL Ur Leukocyte Esterase (Negative) Urine WBC (Auto) (0.0-6.0) /HPF Urine RBC (Auto) (0.0-6.0) /HPF U Epithel Cells (Auto) (0-13.0) /HPF Urine Bacteria (Auto) (Negative) /HPF Hyaline Casts /LPF Urine Mucus /HPF Urine Yeast (Budding) /HPF Urine Opiates Screen Urine Methadone Screen Ur Barbiturates Screen Ur Phencyclidine Scrn Ur Amphetamines Screen U Benzodiazepines Scrn Urine Cocaine Screen U Marijuana (THC) Screen Drugs of Abuse Note Plasma/Serum Alcohol < 0.01 (0-0.07) % - Radiology Data Radiology results: report reviewed CT BRAIN: 04/09/2021 INDICATION / CLINICAL INFORMATION: Head trauma. COMPARISON: None available. FINDINGS: BRAIN/INTRACRANIAL STRUCTURES: Unenhanced CT images of the brain demonstrate no evidence of acute abnormality. Ventricles and sulci are normal in size and shape. There is no evidence of hemorrhage or mass. There are no abnormal extra-axial fluid collections. EXTRACRANIAL STRUCTURES: Unremarkable. IMPRESSION: Negative unenhanced CT of the brain. - Medical Decision Making This patient presents to the emergency department via PD from home after she called 911 saying that she was unable to locate her [id number] daughter, who happened to be with her father in another room in the house. Per PD there was evidence that the patient had been destroying furniture and another objects in the home. The patient forcefully hit her head against the windows in the police car and the divider between the front seat in backat. No LOC but the patient did cause a forehead laceration. The patient was making nonspecific homicidal threats. She was also making suicidal threats. At the time of my examination the patient does exhibit some signs of acute psychosis. She is oriented, AAO x3, but sometimes expresses disorganized thoughts and delusions. For all these reasons the patient has been made a 1013 and placed on ED hold. The patient was seen by the psychiatric international accountant who agr ees that the patient appears to require inpatient stabilization. The patient refused sutures, so the laceration was closed using Steri-Strips and Dermabond. Labs have been mostly unremarkable except for a UTI seen on urinalysis. She has been started on Macrobid. Vital signs reassuring throughout her ED course thus far. We will continue to monitor while she is in the emergency department. Patient is medically cleared for psychiatric placement. Critical Care Time: No Critical care attestation.: If time is entered above; I have spent that time in minutes in the direct care of this critically ill patient, excluding procedure time. ED Disposition Clinical Impression: Acute psychosis, Self-harming behavior Forehead laceration Qualifiers: Encounter type: initial encounter Qualified Code(s): S01.81XA - Laceration without foreign body of other part of head, initial encounter UTI (urinary tract infection) Qualifiers: Urinary tract infection type: acute cystitis Hematuria presence: without hematuria Qualified Code(s): N30.00 - Acute cystitis without hematuria Disposition: [address] [place] [address] Is pt being admited?: No Condition: Stable Prescriptions: Nitrofurantoin Whitley/M-Cryst [Macrobid CAP] 100 mg PO BID #12 capsule Time of Disposition: 00:54
[2021-04-09 21:00] LABS: Amphetamine Screen,Urine Negative; Benzodiazepines Screen,Urine Negative; Cannabinoid Screen,Urine Negative; Cocaine Screen,Urine Negative; Methadone Screen,Urine Negative; Opiate Screen,Urine Negative
[2021-04-09 21:04] LABS: Bacteria,Urine 4+ /HPF (Negative); Bilirubin,Urine NEG (Negative); Blood,Urine NEG (Negative); Color,Urine Yellow (Yellow); Hyaline Casts,Urine 8 /LPF; Mucus,Urine 2+ /HPF; Urobilinogen,Urine < 2.0 mg/dL (<2.0)
[2021-04-09 21:06] LABS: Basophils % (Auto) 0.4 % (0.0-1.8); Eosinophils % (Auto) 0.1 % (0.0-4.3); Hemoglobin 10.5 gm/dl (10.1-14.3); Lymphocytes % (Auto) 9.7 % (13.4-35.0); Mean Corpuscular HGB Conc 33 % (30-34); Mean Corpuscular Volume 75 fl (79-97); Monocytes % (Auto) 9.6 % (0.0-7.3); Platelet Count 284 K/mm3 (140-440); Red Blood Count 4.25 M/mm3 (3.65-5.03); Red Cell Distribution Width 16.9 % (13.2-15.2)
[2021-04-09 21:13] LABS: BUN/Creatinine Ratio 9; Blood Urea Nitrogen 8 mg/dL (7-17); Calcium 10.1 mg/dL (8.4-10.2); Hemolysis Index 3
--- NOTE | 2021-04-09 21:19 | Cat Scan Report ---
CT BRAIN: 04/09/2021 INDICATION / CLINICAL INFORMATION: Head trauma. COMPARISON: None available. FINDINGS: BRAIN/INTRACRANIAL STRUCTURES: Unenhanced CT images of the brain demonstrate no evidence of acute abn ormality. Ventricles and sulci are normal in size and shape. There is no evidence of hemorrhage or mass. There are no abnormal extra-axial fluid collections. EXTRACRANIAL STRUCTURES: Unremarkable. IMPRESSION: Negative unenhanced CT of the brain. All CT scans at this location are performed using dose reduction to ALARA by means of automated expos ure control. Signer Name: Nando Rudolph MD Signed: 04/09/2021 9:14 PM Workstation Name: [id number]
[2021-04-09] MEDS: NITROFURANTOIN MONOHYD/M-CRYST 100 MG CAP PO SCH (22:17)
[2021-04-10 07:52] VITALS: BP 110/71
[2021-04-10] MEDS: NITROFURANTOIN MONOHYD/M-CRYST 100 MG CAP PO SCH (09:48)
--- NOTE | 2021-04-10 11:03 | Consultation ---
History of Present Illness - Reason for Consult Consult date: 04/10/21 Reason for consult: mental health evaluation - History of Present Psychiatric Illness Per ED Note: 25-year-old -[place] female presents to the emergency department via PD for a mental health evaluation and evaluation of head trauma. The patient called 911 saying that her [id number] daughter was missing, when in fact her daughter was in the other room with her father. When police arrived the father showed them evidence that she had been having a psychotic breakdown and has been destroying furniture and other items in the house. When the patient was in custody with the police she began banging her head against the window and divider between the front and back seat, around 15 times per PD. PD also says that the patient was making homicidal threats towards nonspecific people at the [facility] in anticipation of going to [facility]. Patient has a history of bipolar disorder and schizophrenia. Dalila Solis is a 25 year old female with history of Bipolar, Schizophrenia. In my interview with the patient, she is calm, alert and oriented x3. The patient reports non compliance with psychotropic medications,last took meds over a year ago. The patient reports recent stressor such ongoing separation with her stating " I'm not allowed to be a mother, I was trying to leave a toxic situation. The patient reports that she called out " I'll kill myself when I was placed in the police car." The patient denies any current suicidal/homicidal ideation and denies hallucinations. Psych History Diagnoses: Bipolar, Schizophrenia Suicide attempts or Self-harm behavior:Denies Prior psychiatric hospitalizations: Yes Substance Abuse history:Denies Previous psychiatric medications tried:Unable to recall Outpatient treatment: Denies PAST MEDICAL HISTORY: none reported Family Psychiatric History: None reported or documented SOCIAL HISTORY Marital Status: Living Arrangements: Lives with father Employment Status:Self employed Access to guns/weapons: Denies Education: 2 year college History of Abuse:Yes Legal History: None reported REVIEW OF SYSTEMS Constitutional: Negative for weight loss ENT: Negative for stridor Respiratory: Negative for cough or hemoptysis All other systems reviewed and are negative MENTAL STATUS EXAMINATION General Appearance and Behavior: Age appropriate, good hygiene, wearing appropriate clothes, sleeping, cooperative Cooperation: cooperative Psychomotor Behavior: unremarkable and within normal limits Mood: "OK" Affect and affective range: congruent with mood Thought Process:Goal directed Thought Content: Denies Speech: Normal volume, Regular rate and rhythm, Suicidal Ideation: Denies Homicidal Ideation:Denies Hallucinations:Denies Delusions: None elicited Impulse Control: Questionable Insight and Judgment: Limited insight and fair judgment, Memory: Normal, Attention: Normal Orientation: Alert, oriented Assessment and Plan (1)Bipolar disorder, unspecified- F31.9 Treatment plan Discontinue 1013 Start Seroquel 25mg po BID Start Depakote 250mg po BID Risks, benefits and alternatives of medications discussed with the patient, ques tions answered and consent obtained from patient. PSYCHOTHERAPY: Supportive psychotherapy provided MEDICAL: Per primary team DELIRIUM PRECAUTIONS: Please re-orient patient frequently, keep lights on during the day, and minimize benzodiazepines and opiates as these medications could worsen patient's confusion. POLICE OFFICER CRIME PREVENTION: Defer to primary Disposition: Do not recommend acute psychiatric inpatient treatment. [facility] will provide patient with out patient resources Will sign off. Thank you for the consult. Please contact with any questions and/or concerns. Case staffed with Dr. Ventura Medications and Allergies Allergies Allergy/AdvReac Type Severity Reaction Status Date / Time No Known Allergies Allergy Verified 04/09/21 21:21 Home Medications Medication Instructions Recorded Confirmed Last Taken Type Divalproex Dr [DepaKOTE DR] 250 mg PO BID 30 Days #60 tablet 04/10/21 Unknown Rx Nitrofurantoin Cherry/M-Cryst 100 mg PO BID #12 capsule 04/10/21 Unknown Rx [Macrobid CAP] QUEtiapine [SEROquel] 25 mg PO BID 30 Days #60 tablet 04/10/21 Unknown Rx Active Meds: Active Medications Nitrofurantoin Macrocrystals (Nitrofurantoin Monohyd/M-Cryst 100 Mg Cap) 100 mg PO BID [facility] Last Admin: 04/10/21 09:48 Dose: 100 mg Documented by: Mental Status Exam - Vital signs Last Vital Signs Temp 98.6 F 04/10/21 07:50 Pulse 97 H 04/10/21 07:50 Resp 18 04/10/21 07:50 BP 110/71 04/10/21 07:50 Pulse Ox 100 04/10/21 08:35 Results Result Diagrams: 04/09/21 20:44 04/09/21 20:44 Abnormal lab results 04/09/21 04/09/21 04/09/21 Range/Units 20:14 20:44 20:44 MCV 75 L (79-97) fl MCH 25 L (28-32) pg RDW 16.9 H (13.2-15.2) % Lymph % (Auto) 9.7 L (13.4-35.0) % Cherry % (Auto) 9.6 H (0.0-7.3) % Lymph # (Auto) 1.0 L (1.2-5.4) K/mm3 Cherry # (Auto) 1.0 H (0.0-0.8) K/mm3 Seg Neutrophils % 80.2 H (40.0-70.0) % Seg Neutrophils # 8.6 H (1.8-7.7) K/mm3 Carbon Dioxide 20 L (22-30) mmol/L Urine WBC (Auto) 45.0 H (0.0-6.0) /HPF All other labs normal.
== END 2021-04-10 14:35 ==
LOC: ED 19:20
DX: S01.81XA Laceration without foreign body of other part of head, initial encounter (principal); N39.0 Urinary tract infection, site not specified; Z20.822 Contact with and (suspected) exposure to COVID-19; F23 Brief psychotic disorder; Z79.899 Other long term (current) drug therapy; Z87.891 Personal history of nicotine dependence; X83.8XXA Intentional self-harm by other specified means, initial encounter; Y93.89 Activity, other specified; Y92.89 Other specified places as the place of occurrence of the external cause; Y99.8 Other external cause status
CPT/HCPCS: 36415; 70450; 80048; 80307; 80320; 81001; 84703; 85025; 87076; 87086; 87186; 90471; 90715; 99285; G0480; U0003

== ENCOUNTER 2021-04-21 14:33 | Emergency (ER) | payer SELFPAY ==
--- NOTE | 2021-04-21 14:58 | Emergency Department Report ---
ED Psych HPI - General Stated Complaint: EXCITED DELIRIUM /1013 Time Seen by Provider: 04/21/21 14:52 Source: police, EMS - History of Present Illness Initial Comments: Patient is 25-year-old female with history of schizophrenia and bipolar disorder. Patient brought to the emergency room by EMS accompanied by police. According to the police patient became very agitated and started fighting with her family aggressively. EMS have to sedate the patient with Geodon 20 mg. Upon arrival to the ER patient is obtunded most likely secondary to sedation. Patient denied suicidal ideation. MD Complaint: altered mental status - Related Data Previous Rx's Medication Instructions Recorded Last Taken Type Divalproex Dr [DepaKOTE DR] 250 mg PO BID 30 Days #60 tablet 04/10/21 Unknown Rx Nitrofurantoin [place]/M-Cryst 100 mg PO BID #12 capsule 04/10/21 Unknown Rx [Macrobid CAP] QUEtiapine [SEROquel] 25 mg PO BID 30 Days #60 tablet 04/10/21 Unknown Rx Allergies Allergy/AdvReac Type Severity Reaction Status Date / Time No Known Allergies Allergy Verified 04/09/21 21:21 ED Review of Systems ROS: Stated complaint: EXCITED DELIRIUM /1013 Other details as noted in HPI Comment: All other systems reviewed and negative Constitutional: denies: chills, fever Respiratory: denies: shortness of breath Cardiovascular: denies: chest pain, palpitations Gastrointestinal: denies: abdominal pain, nausea, vomiting Neurological: denies: headache, weakness Psychiatric: denies: homicidal thoughts, suicidal thoughts ED Past Medical Hx - Past Medical History Hx Hypertension: No Hx Heart Attack/AMI: No Hx Congestive Heart Failure: No Hx Diabetes: No Hx Deep Vein Thrombosis: No Hx Renal Disease: No Hx Sickle Cell Disease: Yes (TRAIT) Hx Seizures: No Hx Psychiatric Treatment: Yes (bipolar, schizophrenia) Hx Asthma: No Hx COPD: No Hx HIV: No - Surgical History Additional Surgical History: ankle surgery, c section x1 - Social History Smoking Status: Former Smoker - Medications Home Medications: Home Medications Medication Instructions Recorded Confirmed Last Taken Type Divalproex Dr [DepaKOTE DR] 250 mg PO BID 30 Days #60 tablet 04/10/21 Unknown Rx Nitrofurantoin [place]/M-Cryst 100 mg PO BID #12 capsule 04/10/21 Unknown Rx [Macrobid CAP] QUEtiapine [SEROquel] 25 mg PO BID 30 Days #60 tablet 04/10/21 Unknown Rx ED Physical Exam - General General appearance: alert, obtunded - Head Head exam: Present: atraumatic, normocephalic, normal inspection - Eye Eye exam: Present: normal appearance - ENT ENT exam: Present: normal exam, normal orophraynx, mucous membranes moist - Neck Neck exam: Present: normal inspection, full ROM. Absent: tenderness, meningismus - Respiratory Respiratory exam: Present: normal lung sounds bilaterally - Cardiovascular Cardiovascular Exam: Present: regular rate, normal rhythm, normal heart sounds - GI/Abdominal GI/Abdominal exam: Present: soft, normal bowel sounds. Absent: distended, tenderness, guarding, rebound, rigid, organomegaly, mass, bruit, pulsatile mass, hernia - Extremities Exam Extremities exam: Present: normal inspection, full ROM, normal capillary refill. Absent: tenderness, pedal edema, joint swelling, calf tenderness - Back Exam Back exam: Present: normal inspection, full ROM. Absent: CVA tenderness (R), CVA tenderness (L) - Psychiatric Psychiatric exam: Present: agitated. Absent: suicidal ideation - Skin Skin exam: Present: warm, intact ED Course Vital Signs 04/21/21 04/22/21 04/22/21 20:03 08:17 22:03 Temperature 98.6 F 97 F L 97.6 F Pulse Rate 103 H 100 H 86 Respiratory 18 16 18 Rate Blood Pressure 113/63 124/70 130/80 [Right] O2 Sat by Pulse 99 99 98 Oximetry 04/23/21 09:56 Temperature 98.6 F Pulse Rate 91 H Respiratory 16 Rate Blood Pressure 111/71 [Right] O2 Sat by Pulse 100 Oximetry ED Medical Decision Making - Lab Data Result diagrams: 04/22/21 00:07 04/22/21 00:07 Critical care attestation.: If time is entered above; I have spent that time in minutes in the direct care of this critically ill patient, excluding procedure time. ED Disposition Clinical Impression: Acute psychosis Disposition: [address] [place] [address] Is pt being admited?: No Condition: Stable Referrals: PRIMARY CARE, [Primary Care Provider] - 3-5 Days
[2021-04-21] MEDS ORDERED: LORazepam 2 MG/ML VIAL IM ONE (21:43)
[2021-04-21] MEDS ORDERED: HALOPERIDOL LACTATE 5 MG/1 ML INJ IM ONE (21:43)
[2021-04-21] MEDS: ZIPRASIDONE MESYLATE 20 MG VIAL IM PRN (22:19)
[2021-04-22 00:30] LABS: Basophils % (Auto) 0.5 % (0.0-1.8); Eosinophils % (Auto) 0.3 % (0.0-4.3); Hemoglobin 9.6 gm/dl (10.1-14.3); Lymphocytes # (Auto) 1.2 K/mm3 (1.2-5.4); Lymphocytes % (Auto) 15.9 % (13.4-35.0); Mean Corpuscular HGB Conc 33 % (30-34); Mean Corpuscular Volume 76 fl (79-97); Monocytes # (Auto) 0.8 K/mm3 (0.0-0.8); Monocytes % (Auto) 10.1 % (0.0-7.3); Platelet Count 312 K/mm3 (140-440); Red Blood Count 3.81 M/mm3 (3.65-5.03); Red Cell Distribution Width 16.9 % (13.2-15.2)
[2021-04-22 00:37] LABS: BUN/Creatinine Ratio 9; Blood Urea Nitrogen 7 mg/dL (7-17); Calcium 9.2 mg/dL (8.4-10.2); Hemolysis Index 3
--- NOTE | 2021-04-22 08:19 | Consultation ---
History of Present Illness - Reason for Consult Consult date: 04/22/21 Reason for consult: AMS - History of Present Psychiatric Illness ED Note:Patient is 25-year-old female with history of schizophrenia and bipolar disorder. Patient brought to the emergency room by EMS accompanied by police. According to the police patient became very agitated and started fighting with her family aggressively. EMS have to sedate the patient with Geodon 20 mg. Upon arrival to the ER patient is obtunded most likely secondary to sedation. Patient denied suicidal ideation. Dalila Parsons is a 25 year old female with history of Schizophrenia, and Bipolar disorder who presents to the EDwith altered mental status. In my interview with the patient, she is paranoid, hyperverbal with pressured speech, stating she works with the "[employer] The patient states she got into a fight with her parents yesterday " my parents don't want to give me my daughter." Medication compliance is unknown. She denies suicidal/homicidal ideation. Psych History Diagnoses: Bipolar, Schizophrenia Suicide attempts or Self-harm behavior:Denies Prior psychiatric hospitalizations: Yes Substance Abuse history:Denies Previous psychiatric medications tried:Unable to recall Outpatient treatment: Denies PAST MEDICAL HISTORY: none reported Family Psychiatric History: None reported or documented SOCIAL HISTORY Marital Status: Living Arrangements: Lives with father Employment Status:Self employed Access to guns/weapons: Denies Education: 2 year college History of Abuse:Yes Legal History: None reported REVIEW OF SYSTEMS Constitutional: Negative for weight loss ENT: Negative for stridor Respiratory: Negative for cough or hemoptysis All other systems reviewed and are negative MENTAL STATUS EXAMINATION General Appearance and Behavior: Age appropriate, good hygiene, wearing appropriate clothes, sleeping, cooperative Cooperation: cooperative Psychomotor Behavior: unremarkable and within normal limits Mood: "OK" Affect and affective range: Incongruent with mood Thought Process:Rambling,Flight of ideas, hyperverbal Thought Content: Paranoid Speech: Normal volume, Regular rate and rhythm, Suicidal Ideation: Denies Homicidal Ideation:Denies Hallucinations:Denies Delusions: Paranoid Impulse Control: Questionable Insight and Judgment: Limited insight and poor judgment, Memory: Normal, Attention: Normal Orientation: Alert, oriented Assessment and Plan (1)Bipolar disorder, unspecified- F31.9 Treatment plan continue 1013 Start Seroquel 25mg po BID Start Depakote 250mg po BID Risks, benefits and alternatives of medications discussed with the patient, questions answered and consent obtained from patient. PSYCHOTHERAPY: Supportive psychotherapy provided MEDICAL: Per primary team DELIRIUM PRECAUTIONS: Please re-orient patient frequently, keep lights on during the day, and minimize benzodiazepines and opiates as these medications could worsen patient's confusion. [employer]ENT: Defer to primary Disposition: Recommend acute psychiatric inpatient treatment. [facility] will provide patient with out patient resources Will follow. Thank you for the consult. Please contact with any questions and/or concerns. Case staffed with Dr. Ventura Medications and Allergies Allergies Allergy/AdvReac Type Severity Reaction Status Date / Time No Known Allergies Allergy Verified 04/09/21 21:21 Home Medications Medication Instructions Recorded Confirmed Last Taken Type Divalproex Dr [DepaKOTE DR] 250 mg PO BID 30 Days #60 tablet 04/10/21 Unknown Rx Nitrofurantoin [place]/M-Cryst 100 mg PO BID #12 capsule 04/10/21 Unknown Rx [Macrobid CAP] QUEtiapine [SEROquel] 25 mg PO BID 30 Days #60 tablet 04/10/21 Unknown Rx Active Meds: Active Medications Ziprasidone (Ziprasidone Mesylate 20 Mg Vial) 10 mg IM Q2H PRN PRN Reason: Agitation Last Admin: 04/21/21 22:19 Dose: 10 mg Documented by: Mental Status Exam - Vital signs Last Vital Signs Temp 98.6 F 04/21/21 20:03 Pulse 103 H 04/21/21 20:03 Resp 18 04/21/21 20:03 BP 113/63 04/21/21 20:03 Pulse Ox 99 04/21/21 20:03 Results Result Diagrams: 04/22/21 00:07 04/22/21 00:07 Abnormal lab results 04/22/21 04/22/21 04/22/21 Range/Units 00:07 00:07 00:07 Hgb 9.6 L (10.1-14.3) gm/dl Hct 29.0 L (30.3-42.9) % MCV 76 L (79-97) fl MCH 25 L (28-32) pg RDW 16.9 H (13.2-15.2) % [place] % (Auto) 10.1 H (0.0-7.3) % Seg Neutrophils % 73.2 H (40.0-70.0) % Chloride 108.2 H (98-107) mmol/L Carbon Dioxide 20 L (22-30) mmol/L Salicylates < 0.3 L (2.8-20.0) mg/dL Acetaminophen (10.0-30.0) ug/mL 04/22/21 Range/Units 00:07 Hgb (10.1-14.3) gm/dl Hct (30.3-42.9) % MCV (79-97) fl MCH (28-32) pg RDW (13.2-15.2) % [place] % (Auto) (0.0-7.3) % Seg Neutrophils % (40.0-70.0) % Chloride (98-107) mmol/L Carbon Dioxide (22-30) mmol/L Salicylates (2.8-20.0) mg/dL Acetaminophen 5.0 L (10.0-30.0) ug/mL All other labs normal.
[2021-04-22] MEDS: DIVALPROEX DR 250 MG TAB PO SCH ×2 (09:53→22:08)
[2021-04-22] MEDS: QUEtiapine 25 MG TAB PO SCH ×2 (09:54→22:08)
--- NOTE | 2021-04-22 10:44 | Event Note ---
Date: 04/22/21 S: No events reported overnight O: Vital Signs 04/21/21 04/22/21 20:03 08:17 Temperature 98.6 F 97 F L Pulse Rate 103 H 100 H Respiratory 18 16 Rate Blood Pressure 113/63 124/70 [Right] O2 Sat by Pulse 99 99 Oximetry A: Bipolar disorder PE: Continue 1013, awaiting inpatient psych placement
[2021-04-22 12:39] LABS: Amphetamine Screen,Urine Negative; Bilirubin,Urine NEG (Negative); Blood,Urine NEG (Negative); Cannabinoid Screen,Urine Negative; Cocaine Screen,Urine Negative; Color,Urine Yellow (Yellow); Methadone Screen,Urine Negative; Mucus,Urine FEW /HPF; Opiate Screen,Urine Negative; Protein,Urine <15 mg/dL mg/dL (Negative); Urobilinogen,Urine < 2.0 mg/dL (<2.0)
[2021-04-22] MEDS: ZIPRASIDONE MESYLATE 20 MG VIAL IM PRN (13:10)
[2021-04-22 13:57] LABS: Benzodiazepines Screen,Urine Positive
[2021-04-22 17:17] LABS: Hepatitis C Virus Antibody Non-Reactive (NonReactive)
[2021-04-22 17:39] LABS: Hepatitis B Surface Antigen Nonreactive (Negative)
[2021-04-23] MEDS: ZIPRASIDONE MESYLATE 20 MG VIAL IM PRN (09:17)
[2021-04-23 09:58] VITALS: BP 111/71
== END 2021-04-23 09:59 ==
LOC: EEVIPCON 14:33 → ED 14:33
DX: F23 Brief psychotic disorder (principal); F31.9 Bipolar disorder, unspecified; F20.9 Schizophrenia, unspecified; Z20.822 Contact with and (suspected) exposure to COVID-19
CPT/HCPCS: 36415; 80048; 80074; 80307; 81001; 84703; 85025; 87806; 96372; 99285; J1630; J2060; J3486; U0003; 80320; G0480